=== PATIENT | female | born 1980 | race Caucasian/White ===

== ENCOUNTER 2018-03-17 18:08 | Emergency (ER) | payer BC ==
[2018-03-17 18:14] VITALS: RESP 18; TEMP 98.9
[2018-03-17] MEDS ORDERED: KETOROLAC 30 MG/ML 1 ML VIAL IVP STA (18:29)
[2018-03-17] MEDS ORDERED: SODIUM CHLORIDE 0.9% 1,000 ML IV STA (18:29)
[2018-03-17] MEDS ORDERED: ONDANSETRON 4 MG/2 ML VIAL IVP STA (18:30)
[2018-03-17] MEDS ORDERED: MECLIZINE 12.5 MG TAB PO STA (18:31)
[2018-03-17] MEDS ORDERED: ORPHENADRINE 30 MG/ML 2 ML VIAL IVP STA (18:31)
--- NOTE | 2018-03-17 19:13 | XR ---
EXAMINATION TYPE: XR chest 2V DATE OF EXAM: 03/17/2018 COMPARISON: None INDICATION: Chest pain TECHNIQUE: Frontal and lateral views of the chest are obtained. FINDINGS: The heart size is normal. The pulmonary vasculature is normal. The lungs are clear. IMPRESSION: 1. No acute pulmonary process.
[2018-03-17 19:21] LABS: ALT 29 U/L (9-52); AST 34 U/L (14-36); Albumin 4.4 g/dL (3.5-5.0); Alkaline Phosphatase 77 U/L (38-126); Anion Gap 13 mmol/L; Blood Urea Nitrogen 14 mg/dL (7-17); Calcium 9.6 mg/dL (8.4-10.2); Carbon Dioxide 21 mmol/L (22-30); Chloride 105 mmol/L (98-107); Glucose 128 mg/dL (74-99); Sodium 139 mmol/L (137-145); Total Bilirubin 0.4 mg/dL (0.2-1.3); Total Protein 7.6 g/dL (6.3-8.2)
--- NOTE | 2018-03-17 19:25 | ED ---
Back Pain HPI - General Chief Complaint: Back Pain/Injury Stated Complaint: Back Pain Time Seen by Provider: 03/17/18 18:19 Source: patient, RN notes reviewed, old records reviewed Limitations: no limitations - History of Present Illness Initial Comments: 37-year-old female presents to return today she states that she was in dinner and developed a sudden sharp pain within the mid of her back. She states it started to wrap around the front complaint of tightness from her back towards the front of her chest. She states that she has had no fall or trauma. She has a history of chronic back problems. Patient states that she's had no fevers or chills, denies any coughing. She denies any lower abdominal pain. She also complains of vertigo. She suffers from vertigo chronically. Patient states that she is has hard time laying flat due to the vertigo. - Related Data Previous Rx's Medication Instructions Recorded Cyclobenzaprine [Flexeril] 10 mg PO TID #15 tab 03/17/18 Ketorolac [Toradol] 10 mg PO Q6HR #15 tab 03/17/18 Allergies Allergy/AdvReac Type Severity Reaction Status Date / Time Opioids - Morphine Analogues Allergy Unknown Verified 03/17/18 18:14 Review of Systems ROS Statement: Those systems with pertinent positive or pertinent negative responses have been documented in the HPI. ROS Other: All systems not noted in ROS Statement are negative. Past Medical History Additional Past Medical History / Comment(s): Low iron, vertigo History of Any Multi-Drug Resistant Organisms: None Reported Past Surgical History: Hysterectomy Past Psychological History: No Psychological Hx Reported Smoking Status: Never smoker Past Alcohol Use History: None Reported Past Drug Use History: None Reported General Exam - General Exam Comments Initial Comments: This is a 37-year-old female. Alert and oriented. No significant distress. Limitations: no limitations General appearance: alert, in no apparent distress Head exam: Present: atraumatic, normocephalic, normal inspection Eye exam: Present: normal appearance, PERRL, EOMI. Absent: scleral icterus, conjunctival injection, periorbital swelling ENT exam: Present: normal exam, mucous membranes moist Neck exam: Present: normal inspection. Absent: tenderness, meningismus, lymphadenopathy Respiratory exam: Present: normal lung sounds bilaterally. Absent: respiratory distress, wheezes, rales, rhonchi, stridor Cardiovascular Exam: Present: regular rate, normal rhythm, normal heart sounds. Absent: systolic murmur, diastolic murmur, rubs, gallop, clicks GI/Abdominal exam: Present: soft, normal bowel sounds. Absent: distended, tenderness, guarding, rebound, rigid Extremities exam: Present: normal inspection, other (Tenderness over the midthoracic spine. No step-offs) Course Vital Signs 03/17/18 03/17/18 18:10 20:30 Temperature 98.9 F Pulse Rate 105 H 75 Respiratory 18 18 Rate Blood Pressure 148/92 135/83 O2 Sat by Pulse 99 98 Oximetry Medical Decision Making - Medical Decision Making 37-year-old female presents or starts to admit back pain. Patient reports she was standing at home today and also had a sharp pain. Worse with movement. She reports it wraps around towards the front of her chest. We did initially be concerned for cardiac. EKG was reviewed and normal. Negative troponin. Chest x-rays reviewed and normal. Other lab work was showingchanges. Patient has significant improvement after IV Toradol and Norflex. She reports that she still has some pain with range motion of her thoracic back. Discussed likely a pinched nerve. I discussed that she has some close follow-up with primary care physician as well as seeing her chiropractor. Discussed that she has any further complaints of pain or symptoms she should return. Patient is much improved after the medications and states she feels like to go home. I discussed strict return parameters. - Lab Data Result diagrams: 03/17/18 18:42 03/17/18 18:42 Lab Results 03/17/18 03/17/18 03/17/18 Range/Units 18:42 18:42 18:42 WBC 12.8 H (3.8-10.6) k/uL RBC 4.53 (3.80-5.40) m/uL Hgb 12.4 (11.4-16.0) gm/dL Hct 37.7 (34.0-46.0) % MCV 83.1 (80.0-100.0) fL MCH 27.4 (25.0-35.0) pg MCHC 32.9 (31.0-37.0) g/dL RDW 14.1 (11.5-15.5) % Plt Count 404 (150-450) k/uL Neutrophils % 80 % Lymphocytes % 13 % Monocytes % 5 % Eosinophils % 1 % Basophils % 0 % Neutrophils # 10.3 H (1.3-7.7) k/uL Lymphocytes # 1.7 (1.0-4.8) k/uL Monocytes # 0.6 (0-1.0) k/uL Eosinophils # 0.2 (0-0.7) k/uL Basophils # 0.0 (0-0.2) k/uL Sodium 139 (137-145) mmol/L Potassium 4.0 (3.5-5.1) mmol/L Chloride 105 (98-107) mmol/L Carbon Dioxide 21 L (22-30) mmol/L Anion Gap 13 mmol/L BUN 14 (7-17) mg/dL Creatinine 0.54 (0.52-1.04) mg/dL Est GFR (CKD-EPI)AfAm >90 (>60 ml/min/1.73 sqM) Est GFR (CKD-EPI)NonAf >90 (>60 ml/min/1.73 sqM) Glucose 128 H (74-99) mg/dL Calcium 9.6 (8.4-10.2) mg/dL Total Bilirubin 0.4 (0.2-1.3) mg/dL AST 34 (14-36) U/L ALT 29 (9-52) U/L Alkaline Phosphatase 77 (38-126) U/L Troponin I <0.012 (0.000-0.034) ng/mL Total Protein 7.6 (6.3-8.2) g/dL Albumin 4.4 (3.5-5.0) g/dL Urine Color Urine Appearance (Clear) Urine pH (5.0-8.0) Ur Specific [place] (1.001-1.035) Urine Protein (Negative) Urine Glucose (UA) (Negative) Urine Ketones (Negative) Urine Blood (Negative) Urine Nitrite (Negative) Urine Bilirubin (Negative) Urine Urobilinogen (<2.0) mg/dL Ur Leukocyte Esterase (Negative) Urine RBC (0-5) /hpf Urine WBC (0-5) /hpf Ur Squamous Epith Cells (0-4) /hpf Urine Mucus (None) /hpf 03/17/18 Range/Units 19:47 WBC (3.8-10.6) k/uL RBC (3.80-5.40) m/uL Hgb (11.4-16.0) gm/dL Hct (34.0-46.0) % MCV (80.0-100.0) fL MCH (25.0-35.0) pg MCHC (31.0-37.0) g/dL RDW (11.5-15.5) % Plt Count (150-450) k/uL Neutrophils % % Lymphocytes % % Monocytes % % Eosinophils % % Basophils % % Neutrophils # (1.3-7.7) k/uL Lymphocytes # (1.0-4.8) k/uL Monocytes # (0-1.0) k/uL Eosinophils # (0-0.7) k/uL Basophils # (0-0.2) k/uL Sodium (137-145) mmol/L Potassium (3.5-5.1) mmol/L Chloride (98-107) mmol/L Carbon Dioxide (22-30) mmol/L Anion Gap mmol/L BUN (7-17) mg/dL Creatinine (0.52-1.04) mg/dL Est GFR (CKD-EPI)AfAm (>60 ml/min/1.73 sqM) Est GFR (CKD-EPI)NonAf (>60 ml/min/1.73 sqM) Glucose (74-99) mg/dL Calcium (8.4-10.2) mg/dL Total Bilirubin (0.2-1.3) mg/dL AST (14-36) U/L ALT (9-52) U/L Alkaline Phosphatase (38-126) U/L Troponin I (0.000-0.034) ng/mL Total Protein (6.3-8.2) g/dL Albumin (3.5-5.0) g/dL Urine Color Light Yellow Urine Appearance Cloudy H (Clear) Urine pH 7.0 (5.0-8.0) Ur Specific [place] 1.007 (1.001-1.035) Urine Protein Negative (Negative) Urine Glucose (UA) Negative (Negative) Urine Ketones 1+ H (Negative) Urine Blood Moderate H (Negative) Urine Nitrite Negative (Negative) Urine Bilirubin Negative (Negative) Urine Urobilinogen <2.0 (<2.0) mg/dL Ur Leukocyte Esterase Moderate H (Negative) Urine RBC 14 H (0-5) /hpf Urine WBC 19 H (0-5) /hpf Ur Squamous Epith Cells 2 (0-4) /hpf Urine Mucus Rare H (None) /hpf 03/17/18 20:07 EKG shows sinus tachycardia, otherwise normal EKG. Ventricular rate 102 bpm. Pulse 146 most seconds. QT duration 92 Vesna's seconds. QT QTc is 362/471 ms. - Radiology Data Radiology results: report reviewed Normal Chest x-ray. Disposition Clinical Impression: Acute mid back pain, Thoracic nerve root impingement Disposition: HOME SELF-CARE Condition: Good Instructions: Acute Low Back Pain (ED) Additional Instructions: Patient has follow-up with primary care provider. Return to emergency department if any alarming signs or symptoms occur. Prescriptions: Cyclobenzaprine [Flexeril] 10 mg PO TID #15 tab Ketorolac [Toradol] 10 mg PO Q6HR #15 tab Is patient prescribed a controlled substance at d/c from ED?: No Referrals: Nonstaff,Physician [Primary Care Provider] - 1-2 days Time of Disposition: 20:18
[2018-03-17 19:31] LABS: Basophils % (A) 0 %; Eosinophils # (A) 0.2 k/uL (0-0.7); Eosinophils % (A) 1 %; HCT 37.7 % (34.0-46.0); HGB 12.4 gm/dL (11.4-16.0); Lymphocytes # (A) 1.7 k/uL (1.0-4.8); Lymphocytes % (A) 13 %; MCH 27.4 pg (25.0-35.0); MCHC 32.9 g/dL (31.0-37.0); MCV 83.1 fL (80.0-100.0); Mean Platelet Volume 6.5; Monocytes # (A) 0.6 k/uL (0-1.0); Monocytes % (A) 5 %; Neutrophils # (A) 10.3 k/uL (1.3-7.7); Neutrophils % (A) 80 %; Platelet Count 404 k/uL (150-450); RBC 4.53 m/uL (3.80-5.40); RDW 14.1 % (11.5-15.5); WBC 12.8 k/uL (3.8-10.6)
[2018-03-17 20:06] LABS: Appearance,Urine Cloudy (Clear); Bilirubin,Urine Negative (Negative); Blood,Urine Moderate (Negative); Color,Urine Light Yellow; Glucose,Urine (UA) Negative (Negative); Ketones,Urine 1+ (Negative); Leukocyte Esterase,Urine Moderate (Negative); Mucus,Urine Rare /hpf; Nitrite,Urine Negative (Negative); Protein,Urine Negative (Negative); RBC,Urine 14 /hpf (0-5); Specific Gravity,Urine 1.007 (1.001-1.035); Squamous Epithelial Cell,Urine 2 /hpf (0-4); Urobilinogen,Urine <2.0 mg/dL (<2.0); WBC,Urine 19 /hpf (0-5)
[2018-03-17 20:34] VITALS: BP 135/83; PULSE 75
== END 2018-03-17 20:31 | disposition home or self-care (01) ==
LOC: EC 18:08
DX: G54.3 Thoracic root disorders, not elsewhere classified (principal); R00.0 Tachycardia, unspecified; R42 Dizziness and giddiness; Z88.5 Allergy status to narcotic agent
CPT/HCPCS: 36415; 93005; 80053; 84484; 85025; 81001; 71046; 99284; 96374; 96375 ×2; 96361 ×2; J2360; J2405; J1885

== ENCOUNTER 2018-07-10 00:09 | Emergency (ER) | payer BC ==
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
[2018-07-10 01:33] LABS: VBG PH 7.37 (7.31-7.41)
[2018-07-10 02:20] VITALS: BP 150/87; PULSE 96; RESP 18; TEMP 98.3
== END 2018-07-10 02:20 | disposition home or self-care (01) ==
LOC: EC 00:09
DX: Z77.29 Contact with and (suspected) exposure to other hazardous substances (principal); R05 Cough; R51 Headache; Z88.5 Allergy status to narcotic agent; Z88.8 Allergy status to other drugs, medicaments and biological substances
CPT/HCPCS: 71046; 81025; 82375; 82803; 99283

== ENCOUNTER 2018-07-10 13:28 | Emergency (ER) | payer BC ==
[2018-07-10 13:45] VITALS: RESP 18
[2018-07-10] MEDS ORDERED: SODIUM CHLORIDE 0.9% 1,000 ML IV STA (14:10)
[2018-07-10] MEDS ORDERED: ONDANSETRON 4 MG/2 ML VIAL IVP STA (14:10)
--- NOTE | 2018-07-10 14:13 | ED ---
General Adult HPI - General Chief complaint: Nausea/Vomiting/Diarrhea Stated complaint: CO2 EXPOSURE Time Seen by Provider: 07/10/18 14:02 Source: patient, RN notes reviewed, old records reviewed Mode of arrival: ambulatory Limitations: no limitations - History of Present Illness Initial comments: 37-year-old female patient with no pertinent past medical history presents to ED with approximately 24 hours of nausea vomiting and diarrhea. Patient was recently here yesterday for evaluation of potential exposure to carbon monoxide. At the time of evaluation yesterday laboratory investigations revealed a CO quant of 2.1. Patient states that yesterday she was having some mild nausea and diarrhea. Patient reports that her diarrhea has continued approximately 3-4 times per day and today she has been having approximately 4 episodes of emesis. Patient additionally states that she has had a dull frontal lobe headache for approximately 2 days has been waxing and waning. Patient states that this is not the most severe headache of her life. Patient denies any rapid onset, patient denies any thunderclap. Patient denies any changes in vision. Patient has a recent falls or trauma. Patient states that she has had headaches similar to this in the past. Patient denies any other complaints. Patient denies chest pain, shortness of breath, abdominal pain. Systemic: Pt denies fatigue, myalgia, fever/chills, rash. Pt denies weakness, night sweats, weight loss. Neuro: Pt denies visual disturbances, syncope or pre-syncope. HEENT: Pt denies ocular discharge or irritation, otalgia, rhinorrhea, pharyngitis or notable lymphadenopathy. Cardiopulmonary: Pt denies chest pain, SOB, heart palpitations, dyspnea on exertion. Abdominal/GI: Pt denies abdominal pain. : Pt denies dysuria, burning w/ urination, frequency/urgency. Denies new onset urinary or bowel incontinence. MSK: Pt denies myalgia, loss of strength or function in extremities. Neuro: Pt denies new onset weakness, paresthesias. - Related Data Home Medications Medication Instructions Recorded Confirmed Ferrous Sulfate [Iron] 325 mg PO DAILY 07/10/18 07/10/18 Previous Rx's Medication Instructions Recorded Ondansetron [Zofran] 4 mg PO Q8HR PRN #15 tab 07/10/18 Allergies Allergy/AdvReac Type Severity Reaction Status Date / Time Opioids - Morphine Analogues Allergy Unknown Verified 07/10/18 14:22 venlafaxine [From Effexor] Allergy Unknown Verified 07/10/18 14:22 Review of Systems ROS Statement: Those systems with pertinent positive or pertinent negative responses have been documented in the HPI. ROS Other: All systems not noted in ROS Statement are negative. Past Medical History Additional Past Medical History / Comment(s): Low iron, vertigo. conversion disorder. History of Any Multi-Drug Resistant Organisms: None Reported Past Surgical History: Hysterectomy Past Psychological History: No Psychological Hx Reported Smoking Status: Never smoker Past Alcohol Use History: None Reported Past Drug Use History: None Reported General Exam - General Exam Comments Initial Comments: Constitutional: NAD, AOX3, Pt has pleasant affect. HEENT: NC/AT, trachea midline, neck supple, no lymphadenopathy. Posterior pharynx non erythematous, without exudates. External ears appear normal, without discharge. Mucous membranes moist. Eyes PERRLA, EOM intact. There is no scleral icterus. No pallor noted. Cardiopulmonary: RRR, no murmurs, rubs or gallops, no JVD noted. Lungs CTAB in anterior and posterior gutierrez. No peripheral edema. Abdominal exam: Abdomen soft and non-distended. Abdomen non-tender to palpation in all 4 quadrants. Bowel sounds active in LLQ. No hepatosplenomegaly. No ecchymosis Neuro: CN II-XII intact. No nuchal rigidity. No focal deficit, facial droop. No cervical spinal tenderness. MSK: No posterior calf tenderness bilaterally, homans sign negative bilaterally. Posterior tibialis and radial pulse +2 bilaterally. Sensation intact in upper and lower extremities. Full active ROM in upper and lower extremities, 5/5 stregnth. Limitations: no limitations Course Vital Signs 07/10/18 13:42 Temperature 97.6 F Pulse Rate 92 Respiratory 18 Rate Blood Pressure 153/90 O2 Sat by Pulse 100 Oximetry Medical Decision Making - Medical Decision Making 37-year-old female patient with no pertinent past medical history presents to ED with approximately 24 hours of nausea vomiting and diarrhea. Patient was recently here yesterday for evaluation of potential exposure to carbon monoxide. At the time of evaluation yesterday laboratory investigations revealed a CO quant of 2.1. Patient states that yesterday she was having some mild nausea and diarrhea. Patient reports that her diarrhea has continued approximately 3-4 times per day and today she has been having approximately 4 episodes of emesis. Patient additionally states that she has had a dull frontal lobe headache for approximately 2 days has been waxing and waning. Physical exam did not display acute pathology, normal neurological exam. Vital signs stable afebrile. Laboratory investigations revealed white blood cell count 12.0, otherwise non-impressive CBC. He has blood gases were unchanged from yesterday, carbon monoxide quant 2.1, same as yesterday. CMP was within normal limits. Patient improved with IV fluids, Zofran. Patient diagnosed with gastroenteritis. Patient states that headache resolved after IV fluid administration. Patient to be discharged with Zofran to use as needed for nausea/vomiting. Patient encouraged to increase PO intake of fluids. Patient to follow up with primary care provider in 1-2 days. Patient to return to ED if new signs symptoms develop or if condition worsens in any way. Pt had negative test yesterday. Case discussed in depth with Dr. Dacosta. - Lab Data Result diagrams: 07/10/18 14:30 07/10/18 14:30 Lab Results 07/10/18 07/10/18 07/10/18 Range/Units 14:30 14:30 14:30 WBC 12.0 H (3.8-10.6) k/uL RBC 4.71 (3.80-5.40) m/uL Hgb 13.2 (11.4-16.0) gm/dL Hct 39.9 (34.0-46.0) % MCV 84.7 (80.0-100.0) fL MCH 28.0 (25.0-35.0) pg MCHC 33.0 (31.0-37.0) g/dL RDW 13.9 (11.5-15.5) % Plt Count 382 (150-450) k/uL Neutrophils % 85 % Lymphocytes % 10 % Monocytes % 4 % Eosinophils % 1 % Basophils % 0 % Neutrophils # 10.1 H (1.3-7.7) k/uL Lymphocytes # 1.2 (1.0-4.8) k/uL Monocytes # 0.4 (0-1.0) k/uL Eosinophils # 0.1 (0-0.7) k/uL Basophils # 0.0 (0-0.2) k/uL VBG pH 7.38 (7.31-7.41) VBG pCO2 49 (37-51) mmHg VBG HCO3 28 (24-28) mmol/L Carbon Monoxide, Quant 2.1 (<10.0) % Sodium 139 (137-145) mmol/L Potassium 4.2 (3.5-5.1) mmol/L Chloride 102 (98-107) mmol/L Carbon Dioxide 27 (22-30) mmol/L Anion Gap 10 mmol/L BUN 14 (7-17) mg/dL Creatinine 0.59 (0.52-1.04) mg/dL Est GFR (CKD-EPI)AfAm >90 (>60 ml/min/1.73 sqM) Est GFR (CKD-EPI)NonAf >90 (>60 ml/min/1.73 sqM) Glucose 105 H (74-99) mg/dL Calcium 9.7 (8.4-10.2) mg/dL Total Bilirubin 0.8 (0.2-1.3) mg/dL AST 36 (14-36) U/L ALT 47 (9-52) U/L Alkaline Phosphatase 85 (38-126) U/L Total Protein 8.0 (6.3-8.2) g/dL Albumin 4.7 (3.5-5.0) g/dL Disposition Clinical Impression: Acute gastroenteritis Disposition: HOME SELF-CARE Condition: Stable Instructions (If sedation given, give patient instructions): Acute Nausea and Vomiting (ED), Gastroenteritis (ED) Additional Instructions: Patient to adhere to previously discussed treatment plan and will take medication(s) as directed. Patient to follow up with PCP in 1-2 days. Patient to return to ED if symptoms do not improve. Prescriptions: Ondansetron [Zofran] 4 mg PO Q8HR PRN #15 tab PRN Reason: Nausea Is patient prescribed a controlled substance at d/c from ED?: No Referrals: Kiana Wynn MD [Primary Care Provider] - 1-2 days Time of Disposition: 15:39
[2018-07-10 14:58] LABS: Basophils % (A) 0 %; Eosinophils # (A) 0.1 k/uL (0-0.7); Eosinophils % (A) 1 %; HCT 39.9 % (34.0-46.0); HGB 13.2 gm/dL (11.4-16.0); Lymphocytes # (A) 1.2 k/uL (1.0-4.8); Lymphocytes % (A) 10 %; MCV 84.7 fL (80.0-100.0); Mean Platelet Volume 6.1; Monocytes # (A) 0.4 k/uL (0-1.0); Monocytes % (A) 4 %; Neutrophils # (A) 10.1 k/uL (1.3-7.7); Neutrophils % (A) 85 %; Platelet Count 382 k/uL (150-450); RBC 4.71 m/uL (3.80-5.40); RDW 13.9 % (11.5-15.5)
[2018-07-10 14:59] LABS: Carbon Monoxide 2.1 % (<10.0); VBG PH 7.38 (7.31-7.41)
[2018-07-10 15:05] LABS: ALT 47 U/L (9-52); AST 36 U/L (14-36); Albumin 4.7 g/dL (3.5-5.0); Alkaline Phosphatase 85 U/L (38-126); Anion Gap 10 mmol/L; Blood Urea Nitrogen 14 mg/dL (7-17); Calcium 9.7 mg/dL (8.4-10.2); Carbon Dioxide 27 mmol/L (22-30); Chloride 102 mmol/L (98-107); Glucose 105 mg/dL (74-99); Potassium 4.2 mmol/L (3.5-5.1); Sodium 139 mmol/L (137-145); Total Bilirubin 0.8 mg/dL (0.2-1.3)
[2018-07-10 15:49] VITALS: BP 138/87; PULSE 88; TEMP 97.8
== END 2018-07-10 15:49 | disposition home or self-care (01) ==
LOC: EC 13:28
DX: K52.9 Noninfective gastroenteritis and colitis, unspecified (principal); R51 Headache; Z86.2 Personal history of diseases of the blood and blood-forming organs and certain disorders involving the immune mechanism; Z79.899 Other long term (current) drug therapy; Z88.8 Allergy status to other drugs, medicaments and biological substances; Z88.5 Allergy status to narcotic agent
CPT/HCPCS: 36415; 80053; 82375; 82803; 85025; 99284; 96374; 96361; J2405